=== PATIENT | female | born 1960 | race Hispanic/Latino ===

== ENCOUNTER 2019-08-12 01:59 | Emergency (ER) | payer BC, OTHER ==
[2019-08-12] MEDS ORDERED: KETOROLAC TROMETHAMINE 30MG/ML ONE (03:11)
== END 2019-08-12 03:33 | disposition home or self-care (01) ==
LOC: EDH 01:59
DX: S93.432A Sprain of tibiofibular ligament of left ankle, initial encounter (principal); E11.9 Type 2 diabetes mellitus without complications; E78.5 Hyperlipidemia, unspecified; I10 Essential (primary) hypertension; Z87.891 Personal history of nicotine dependence; Z90.710 Acquired absence of both cervix and uterus; Z79.4 Long term (current) use of insulin; W01.0XXA Fall on same level from slipping, tripping and stumbling without subsequent striking against object, initial encounter; Y93.89 Activity, other specified; Y92.89 Other specified places as the place of occurrence of the external cause; Y99.8 Other external cause status
CPT/HCPCS: 73610; 96372; 99284; J1885

== ENCOUNTER 2019-10-26 11:17 | Emergency (ER) | payer MEDICARE, OTHER ==
[2019-10-26 12:01] LABS: BASOPHILS % (AUTO) 0.9 % (0.0-5.0); EOSINOPHILS % (AUTO) 2.1 % (0.0-8.0); HEMATOCRIT 40.2 % (36-48); LYMPHOCYTES % (AUTO) 33.6 % (21.0-51.0); MEAN CORPUSCULAR HEMOGLOBIN 30.5 pg (27.0-33.0); MEAN CORPUSCULAR HGB CONC 34.1 g/dL (32.0-36.0); MEAN CORPUSCULAR VOLUME 89.5 fL (79-99); MONOCYTES % (AUTO) 8.2 % (3.0-13.0); NEUTROPHILS % (AUTO) 54.9 % (40.0-77.0); PLATELET COUNT (AUTO) 211 K/uL (130-400); RED BLOOD CELL COUNT(AUTO) 4.49 MIL/uL (4.00-5.50); RED CELL DISTRIBUTION WIDTH 12.2 % (11.0-15.5); WHITE BLOOD COUNT (AUTO) 6.8 K/uL (4.8-10.8)
[2019-10-26 12:08] LABS: CREATININE 0.8 mg/dL (0.5-1.5); POTASSIUM 4.3 mmol/L (3.5-5.1)
== END 2019-10-26 12:47 | disposition home or self-care (01) ==
LOC: EDH 11:17
DX: M79.671 Pain in right foot (principal); M19.90 Unspecified osteoarthritis, unspecified site; E11.9 Type 2 diabetes mellitus without complications; E78.5 Hyperlipidemia, unspecified; I10 Essential (primary) hypertension; Z87.891 Personal history of nicotine dependence
CPT/HCPCS: 36415; 73630; 80048; 85025

== ENCOUNTER → 2020-07-10 | Outpatient (CLI) | payer OTHER | END | disposition home or self-care (01) | LOC: RAH 11:38 | PROVIDERS: ATTEND Internal Medicine | DX: E03.9 Hypothyroidism, unspecified (principal) | CPT/HCPCS: 76536 ==

== ENCOUNTER → 2023-03-23 | Outpatient (CLI) | payer OTHER | END | disposition home or self-care (01) | LOC: RAH 12:13 | PROVIDERS: ATTEND Internal Medicine | DX: R43.0 Anosmia (principal) | CPT/HCPCS: 70486 ==

== ENCOUNTER → 2023-05-17 | Outpatient (CLI) | payer OTHER ==
[~2023-05-17] MED LIST: GADOTERATE MEGLUMINE 10 MMOL/20 ML VIAL IV ONE
== END | disposition home or self-care (01) ==
LOC: RAH 05-11 10:13
PROVIDERS: ATTEND Otolaryngology Plastic Surgery within the Head & Neck
DX: H90.3 Sensorineural hearing loss, bilateral (principal)
CPT/HCPCS: 70553; A9575

== ENCOUNTER → 2024-02-16 | Outpatient (CLI) | payer OTHER | END | disposition home or self-care (01) | LOC: RAH 09:59 | PROVIDERS: ATTEND Internal Medicine | DX: M25.572 Pain in left ankle and joints of left foot (principal) | CPT/HCPCS: 73610 ==